=== PATIENT | female | born 1960 | race Caucasian/White ===

== ENCOUNTER → 2017-09-13 | Outpatient (CLI) | payer BC ==
[~2017-09-13] MED LIST: ALBU17IN INH; COUM2.5T17 PO; IBUP60TA PO; PERC5TAB12 PO; TOPA1TAB PO
--- NOTE | 2017-09-14 14:28 | REP ---
Right hip: Two views: History: Contusion. Findings: AP and frog-leg views of the right hip show smooth rounded femoral head and intact hip joint space. There is mild greater trochanteric spurring. No fracture or subluxation is seen. Mild diffuse osteopenia is noted. Impression: No fracture noted. Signed by Ricco Baltazar MD 09/14/2017 08:06 A
--- NOTE | 2017-09-14 14:28 | REP ---
Right knee : Five views. History: Contusion right knee. Findings: Five views of the right knee and distal femur demonstrate right knee arthroplasty components in good position well aligned with respect to each other. There is diffuse osteopenia. No fracture is seen. Impression: No fracture noted. Signed by Ricco Baltazar MD 09/14/2017 08:07 A
== END ==
LOC: M WUC 16:11
PROVIDERS: ATTEND Physician Assistant
DX: S80.01XA Contusion of right knee, initial encounter (principal); S70.01XA Contusion of right hip, initial encounter

== ENCOUNTER → 2020-10-27 | Outpatient (REF) | payer BC ==
[~2020-10-27] MED LIST changes: +IBUP600T42 PO; -IBUP60TA PO
== END ==
LOC: M LAB REF 13:54
PROVIDERS: ATTEND Ophthalmology
DX: H02.834 Dermatochalasis of left upper eyelid (principal); H02.831 Dermatochalasis of right upper eyelid

== ENCOUNTER → 2023-02-13 | Outpatient (CLI) | payer BC | LOC: M SOG 07:59 | PROVIDERS: ATTEND Physician Assistant | DX: M79.642 Pain in left hand (principal) ==